=== PATIENT | female | born 1990 | race Caucasian/White ===

== ENCOUNTER 2020-11-27 07:45 | Emergency (ER) | payer OTHER, SELFPAY ==
--- NOTE | ~2020-11-27 | US_ITS ---
EXAMINATION: PELVIC ULTRASOUND WITH DOPPLER EXAM CLINICAL INFORMATION: Right sided pelvic pain COMPARISON: None TECHNIQUE: Transabdominal and transvaginal pelvic ultrasound was performed. Transvaginal exam was performed for better visualization of the uterus and ovaries. Grayscale color and Doppler evaluation of the bilateral ovarian arteries and veins was performed including waveform spectral analysis. FINDINGS: The uterus is anteverted and measures 8.2 x 3.9 x 5.7 cm in dimension. No focal uterine lesion is seen. Endometrial thickness is normal measuring 0.6 cm. There are nabothian cysts in the cervix.. The right ovary is slightly enlarged and measures 3.7 x 3.2 x 2.9 cm, volume 18 mL. There are several right ovarian cysts. The largest measures 1.5 x 1.4 x 1.6 cm. There are 2 additional 1 cm right renal cysts. The left ovary is normal-appearing and measures 2.5 x 2 x 2 cm. Arterial and venous flow is documented to both ovaries. There is no evidence of torsion. There is a small amount of fluid in the pelvis. US/US pelvic ovarian doppler IMPRESSION: Slightly enlarged right ovary. Multiple small right ovarian cysts, largest measuring 1.5 x 1.4 x 1.6 cm. No evidence of torsion.
--- NOTE | ~2020-11-27 | US_ITS ---
EXAMINATION: PELVIC ULTRASOUND WITH DOPPLER EXAM CLINICAL INFORMATION: Right sided pelvic pain COMPARISON: None TECHNIQUE: Transabdominal and transvaginal pelvic ultrasound was performed. Transvaginal exam was performed for better visualization of the uterus and ovaries. Grayscale color and Doppler evaluation of the bilateral ovarian arteries and veins was performed including waveform spectral analysis. FINDINGS: The uterus is anteverted and measures 8.2 x 3.9 x 5.7 cm in dimension. No focal uterine lesion is seen. Endometrial thickness is normal measuring 0.6 cm. There are nabothian cysts in the cervix.. The right ovary is slightly enlarged and measures 3.7 x 3.2 x 2.9 cm, volume 18 mL. There are several right ovarian cysts. The largest measures 1.5 x 1.4 x 1.6 cm. There are 2 additional 1 cm right renal cysts. The left ovary is normal-appearing and measures 2.5 x 2 x 2 cm. Arterial and venous flow is documented to both ovaries. There is no evidence of torsion. There is a small amount of fluid in the pelvis. US/US pelvic complete IMPRESSION: Slightly enlarged right ovary. Multiple small right ovarian cysts, largest measuring 1.5 x 1.4 x 1.6 cm. No evidence of torsion.
--- NOTE | ~2020-11-27 | US_ITS ---
EXAMINATION: PELVIC ULTRASOUND WITH DOPPLER EXAM CLINICAL INFORMATION: Right sided pelvic pain COMPARISON: None TECHNIQUE: Transabdominal and transvaginal pelvic ultrasound was performed. Transvaginal exam was performed for better visualization of the uterus and ovaries. Grayscale color and Doppler evaluation of the bilateral ovarian arteries and veins was performed including waveform spectral analysis. FINDINGS: The uterus is anteverted and measures 8.2 x 3.9 x 5.7 cm in dimension. No focal uterine lesion is seen. Endometrial thickness is normal measuring 0.6 cm. There are nabothian cysts in the cervix.. The right ovary is slightly enlarged and measures 3.7 x 3.2 x 2.9 cm, volume 18 mL. There are several right ovarian cysts. The largest measures 1.5 x 1.4 x 1.6 cm. There are 2 additional 1 cm right renal cysts. The left ovary is normal-appearing and measures 2.5 x 2 x 2 cm. Arterial and venous flow is documented to both ovaries. There is no evidence of torsion. There is a small amount of fluid in the pelvis. US/US transvaginal IMPRESSION: Slightly enlarged right ovary. Multiple small right ovarian cysts, largest measuring 1.5 x 1.4 x 1.6 cm. No evidence of torsion.
[2020-11-27 08:01] VITALS: BP 126/57; PULSE 84; RESP 16; TEMP 37; O2SAT 97; BMI 41.1
[2020-11-27 08:34] LABS: Glucose Urine UA NEG (NEG); Leukocyte Esterase Urine NEG (NEG); Nitrite Urine NEG (NEG); PH 7.5 (5.0-8.0); Specific Gravity - Urine 1.015 (1.005-1.025); Urine Blood NEG (NEG); Urine Ketones NEG (NEG); Urine Protein NEG (NEG-TRACE)
[2020-11-27 08:37] LABS: Appearance Urine CLEAR; Color Urine YELLOW
[2020-11-27 09:22] LABS: UPreg QC Valid YES; Urine Pregnancy NEGATIVE (NEGATIVE)
--- NOTE | 2020-11-27 10:04 | ED_ITS ---
HPI - Abdominal Pain General Chief Complaint: Abdominal Pain Stated Complaint: low rt abd pain Time Seen by Provider: 11/27/20 09:02 Source: patient Mode of arrival: ambulatory Limitations: no limitations History of Present Illness HPI narrative: 30 y/o female with history of obesity, depression, asthma, s/p tubal ligation who presents with acute onset of right sided pelvic pain that started at 4 AM and lasted about 2.5 hours. It was severe and worse with any movement. Her convinced her to get evaluated and by the time they were leaving the pain started to improve. Upon arrival it is resolved. She reports several episodes of this in the past year or so, always on the right side. No urinary symptoms, vaginal discharge, or bleeding, no fever, chills, N/V/D. Her LMP was 11/11. MD elicited complaint: abdominal pain Pertinent past history: none Onset (ago): hour(s) (5) Pain Consistency: now resolved Location: RLQ and pelvis Severity: severe Quality: stabbing Radiation: none Migration to: no migration Exacerbating factors: movement Relieving factors: nothing Context: history of similar episodes Associated symptoms: denies other symptoms Related Data Allergies Allergy/AdvReac Type Severity Reaction Status Date / Time No Known Allergies Allergy Verified 11/27/20 08:06 Review of Systems Review of Systems Constitutional: No Fever, No Chills ENT/Mouth: No sore throat, No Rhinorrhea, No Swallowing Difficulty Cardiovascular: No Chest Pain, No SOB Respiratory: No Cough, No Sputum Gastrointestinal: No Nausea, No Vomiting, No Diarrhea, + abdominal Pain, No Hematochezia, No Melena Genitourinary: No Dysuria, No Urinary Frequency, No Hematuria, No vaginal discharge Musculoskeletal: No joint pain, No Myalgias Skin: No Skin Lesions, No rash Neuro: No Weakness, No Numbness, No Dizziness, No Headache Psych: No Anxiety/Panic, No Depression Heme/Lymph: No Lymphadenopathy Endocrine: No Polyuria, No Polydipsia Physical Exam Vital Signs: Vital Signs: Last Vital Signs Temp 98.6 F 11/27/20 08:01 Pulse 84 11/27/20 08:01 Resp 16 11/27/20 08:01 BP 126/57 L 11/27/20 08:01 Pulse Ox 97 11/27/20 08:01 Body Mass Index 41.1 Appearance: Alert. Oriented X3. No acute distress. Eyes: Pupils equal, round and reactive to light. ENT: Pharynx normal. Neck: Normal inspection. Neck supple. CVS: Normal heart rate and rhythm. Pulses normal. Respiratory: No respiratory distress. Breath sounds normal. Abdomen: Obese, Soft and nontender. No RLQ tenderness. No rebound or guarding. +BS x4. Pelvic exam deferred Skin: Skin warm and dry. Normal skin color. Normal skin turgor. No rashes. Extremities: No lower extremity edema. Neuro: Oriented X 3. No motor deficit. No sensory deficit. Course Course Course Narrative: 30 y/o female presenting with episodic RLQ/right sided pelvic pain, now resolved. No tenderness on examination right now. Doubt appendicitis. Clinical presentation is more consistent with ovarian cyst. Will get pelvic U/S to assess and r/o torsion. Reevaluation(s) Reevaluation #1: US showing small cysts on right ovary. No torsion. She was counseled on the results and need for outpatient follow up. She is not currently in any pain. She is stable for discharge. MDM - Abdominal Pain Lab Data Labs: Lab Results 11/27/20 11/27/20 Range/Units 08:14 08:14 Urine Color YELLOW Urine Appearance CLEAR Urine pH 7.5 (5.0-8.0) Ur Specific [place] 1.015 (1.005-1.025) Urine Protein NEG (NEG-TRACE) MG/DL Urine Glucose (UA) NEG (NEG) MG/DL Urine Ketones NEG (NEG) MG/DL Urine Blood NEG (NEG) Urine Nitrite NEG (NEG) Ur Leukocyte Esterase NEG (NEG) Urine Test NEGATIVE (NEGATIVE) Critical Care Time Critical Care Time Critical Care Time: No Discharge Plan Discharge Clinical Impression: Ovarian cyst Qualifiers: Laterality: right Qualified Code(s): N83.201 - Unspecified ovarian cyst, right side Patient Disposition: Home, Self-Care Instructions: Ovarian Cyst (ED) Additional Instructions: Your ultrasound today showed multiple small cysts on your right ovary, this is likely what is causing your pain. Recommend ibuprofen and/or tylenol as needed for pain. Use a heating pad as needed. Follow up with your [facility]. If you have recurrent severe pain or any new or concerning symptoms come back to the ER for further evaluation. Stand Alone Forms: Work/School Release Interventions: ED Discharge Assessment Last Done: 11/27/20 11:18 Discharge Date/Time: 11/27/20 11:19 [facility] Past Medical History Attestation statement: The following information was validated with the patient. Medical History Asthma Surgical History (Updated 11/27/20 @ 08:04 by Luciana Grover) H/O tubal ligation Social History Social History Advance Directives: No Advance Directives Information Provided: No
== END 2020-11-27 11:19 | disposition home or self-care (01) ==
PROVIDERS: Physician Assistant; Emergency Provider Emergency Medicine; PCP Internal Medicine
DX: N83.201 Unspecified ovarian cyst, right side (principal); N88.8 Other specified noninflammatory disorders of cervix uteri; R10.31 Right lower quadrant pain
CPT/HCPCS: 36415; 76830; 76856; 81003; 81025; 93975; 99283; 99284

== ENCOUNTER 2021-08-06 11:37 | Outpatient (REF) | payer OTHER, SELFPAY ==
[2021-08-06 14:00] LABS: Binax Internal Control QC Valid; Binax Now Covid-19 Ag Negative (Negative)
== END 2021-08-06 11:38 | disposition home or self-care (01) ==
LOC: HO.LAB 11:37
PROVIDERS: Visit Provider Internal Medicine
DX: Z20.822 Contact with and (suspected) exposure to COVID-19 (principal)
CPT/HCPCS: 36415; C9803